=== PATIENT | female | born 1980 | race Caucasian/White ===

== ENCOUNTER 2018-03-19 20:21 | Emergency (ER) | payer OTHER ==
[2018-03-19] MEDS ORDERED: Ondansetron PF 4 MG/2 ML Vial ONE (20:53)
[2018-03-19] MEDS ORDERED: Famotidine In NaCl 20 mg/50 ml Premix Bag ONE (20:53)
[2018-03-19 21:12] LABS: Albumin 5.8 g/dL (3.5-5.0); Alkaline Phosphatase 96 U/L (40-150); Anion Gap 24 mmol/L (10-20); BUN (Urea Nitrogen) 19 mg/dL (7.0-18.7); Bilirubin, Total 1.6 mg/dL (0.2-1.2); Calc. Creatinine Clearance 0 mL/min (70-130); Calcium 10.9 mg/dL (7.8-10.44); Carbon Dioxide 14 mmol/L (22-29); Chloride 107 mmol/L (98-107); Estimated GFR-MDRD 38; Globulin 3.6 g/dL (2.4-3.5); Glucose 146 mg/dL (70-105); Potassium 4.9 mmol/L (3.5-5.1); Protein, Total 9.4 g/dL (6.0-8.3); Sodium 140 mmol/L (136-145)
[2018-03-19 21:35] LABS: Band 6 % (5-11); Hemoglobin 18.1 g/dL (12.0-16.0); Lymphocytes 4 % (21-51); MDiff Complete? YES; Mean Corpuscular HGB CONC 34.2 g/dL (32.0-36.0); Mean Corpuscular Hemoglobin 30.4 pg (27.0-31.0); Mean Corpuscular Volume 88.9 fL (78.0-98.0); Mean Platelet Volume 9.5 fL (7.4-10.4); Monocytes 5 % (0-10); Neutrophil 85 % (42-75); PLT Morphology Comment Appears Adequate; Platelet Count 292 thou/uL (130-400); RBC Distribution Width 12.4 % (11.5-14.5); RBC Morphology Normal; Red Blood Cell (RBC) Count 5.98 mill/uL (4.20-5.40); White Blood Cell (WBC) Count 21.1 thou/uL (4.8-10.8)
[2018-03-19] MEDS ORDERED: Acetaminophen 500 MG TAB ONE (21:45)
[2018-03-19 21:46] LABS: ALT (SGPT) 31 U/L (8-55); AST (SGOT) 24 U/L (5-34); Lipase 15 U/L (8-78)
[2018-03-19 22:06] LABS: Clarity Hazy (Clear)
[2018-03-19 22:07] LABS: Leukocyte Negative (Negative); Nitrite Negative (Negative); Specific Gravity, Urine 1.024 (1.002-1.036)
[2018-03-19 22:08] LABS: Bilirubin Moderate (Negative); Blood, Urine Negative (Negative); Glucose, Urine (Dipstick) Negative (Negative); Protein, Urine (Dipstick) 100 mg/dL (Neg-Trace); RBC/HPF 0-3 HPF (0-3); Squamous Epithelial 0-3 HPF (0-3); Urobilinogen 0.2 mg/dL (0.2-1.0)
[2018-03-19 22:09] LABS: Bacteria/HPF 2+ HPF (None Seen)
[2018-03-19 22:10] LABS: Hyaline Casts/LPF 7-10 HYALINE CAST LPF (0-3 Hyaline)
[2018-03-19 22:11] LABS: Other Casts/LPF 7-10 FINELY GRAN LPF (0-3 Hyaline)
[2018-03-19] MEDS ORDERED: cefTRIAXone\\ROCEPHIN 1 GM VIAL ONE (22:22)
== END 2018-03-19 22:45 | disposition home or self-care (01) ==
LOC: BURERS 20:21
DX: E86.0 Dehydration (principal); R11.2 Nausea with vomiting, unspecified; R19.7 Diarrhea, unspecified; N39.0 Urinary tract infection, site not specified; F41.9 Anxiety disorder, unspecified; Z79.899 Other long term (current) drug therapy
CPT/HCPCS: 80053; 81003; 81015; 83690; 85025; 96361; 96365; 96375; J0696; J2405